=== PATIENT | male | born 1970 ===

== ENCOUNTER 2017-03-25 08:43 | Emergency (ER) | payer OTHER ==
[2017-03-25 08:44] VITALS: BMI 38.7
[2017-03-25 09:22] VITALS: BP 132/87; PULSE 96; RESP 16; TEMP 98.5; O2SAT 96
--- NOTE | 2017-03-25 10:26 | ED PDOC ---
HPI: Head Injury Time Seen by Provider: 03/25/17 09:22 Chief Complaint (Nursing): Abnormal Skin Integrity Chief Complaint (Provider): hit in the head with a pipe History Per: Patient History/Exam Limitations: no limitations Injury Occurred (Timing): Today @ (at 8:30 AM) Patient States: Struck With Object Pain Scale Rating Of: 0 Loss Of Consciousness: No Front/Back Head: 1 - 2 cm laceration Additional History Per: Patient Additional Complaint(s): 46 year old male presents after being struck in the head with a pipe while he was at work. Patient was struck in the head due to accident. States he did not lose consciousness, no dizziness, no changes in vision or gait disturbance. He is currently only taking an antibiotic for infection of his LLE that he sustained after an old window fell onto it. He had aristides placed and subsequently developed infection. Unsure of which antibiotic, however he follows up with with PMD regularly. PMD: Dr. Hicks Past Medical History Vital Signs: Last Vital Signs Temp 98.5 F 03/25/17 09:21 Pulse 96 H 03/25/17 09:21 Resp 16 03/25/17 09:21 BP 132/87 03/25/17 09:21 Pulse Ox 96 03/25/17 09:21 - Medical History PMH: Denies: Chronic Kidney Disease - Surgical History Surgical History: Tonsillectomy - Family History Family History: States: Unknown Family Hx - Home Medications Home Medications: Ambulatory Orders Medication Instructions Recorded Unobtainable 03/25/17 - Allergies Allergies/Adverse Reactions: Allergies Allergy/AdvReac Type Severity Reaction Status Date / Time No Known Allergies Allergy Verified 09/09/16 08:16 Physical Exam - Physical Exam Appears: Positive for: Well, No Acute Distress Head Exam: Positive for: NORMOCEPHALIC (left zygomatic process tender to palpation, tenderness above left eyebrow, no ecchymosis or edema.) Skin: Positive for: Normal Color (2 cm laceration above left eyebrow, no edema/ ecchymosis.), Warm, Dry Eye Exam: Positive for: Normal appearance, EOMI, PERRL. Negative for: Nystagmus , Periorbital swelling Neck: Positive for: Normal, Painless ROM Cardiovascular/Chest: Positive for: Regular Rate, Rhythm. Negative for: Edema, Murmur Respiratory: Positive for: Normal Breath Sounds (normal breathing pattern) Gastrointestinal/Abdominal: Positive for: Normal Exam, Bowel Sounds, Soft. Negative for: Tenderness Back: Positive for: Normal Inspection Rectal: Negative for: Deferred Extremity: Positive for: Normal ROM, Other (approx 4 cm healing laceration, skin closed, no signs of infection) Neurologic/Psych: Positive for: Alert, rehabilitation worker II-XII, Oriented, Mood/Affect ( appropriate). Negative for: Motor/Sensory Deficits - ECG O2 Sat by Pulse Oximetry: 96 - Progress ED Course And Treament: Patient denies pain, headache dizziness. AAOX3 reevaluation:Sutures placed. Patient tolerated procedure well. Feels fine. Denies dizziness, headache or pain. Declined pain medication. Patient is stable. Procedures - Laceration/Wound Repair Left Face Wound Length (cm): 2 Wound's Depth, Shape: superficial Wound Explored: no foreign body removed Betadine Prep?: Yes Anesthesia: 1% Lidocaine Wound Repaired With: Sutures Suture Size/Type: 5:0 (prolene, monocryl) Number of Sutures: 7 Wound Complexity: Simple Sterile Dressing Applied?: Yes Disposition - Clinical Impression Clinical Impression: Laceration, Contusion - Patient ED Disposition Is Patient to be Admitted: No - Disposition Disposition: Routine/Home Condition: GOOD Additional Instructions: Patient to follow up with PMD in 2-3 days. Continue taking antibiotics. ER precautions given. Instructions: Laceration (ED) Forms: [facility] ED School/Work Excuse
[2017-03-25] MEDS ORDERED: Lidocaine 1% Inj (20ml) IJ ONE (10:39)
[2017-03-25] MEDS ORDERED: Povidone Iodine Topical 10% Sol TOP ONE (10:41)
[2017-03-25] MEDS ORDERED: Lidocaine 1% Inj (20ml) ONE (10:45)
[2017-03-25] MEDS ORDERED: Povidone Iodine Oint 10% Foilpak UD ONE (10:46)
[2017-03-25] MEDS ORDERED: Povidone Iodine Topical 10% Sol ONE (10:47)
== END 2017-03-25 12:05 | disposition home or self-care (01) ==
LOC: H.ER 08:43
DX: S01.01XA Laceration without foreign body of scalp, initial encounter (principal); W22.8XXA Striking against or struck by other objects, initial encounter; Y99.0 Civilian activity done for income or pay

== ENCOUNTER 2017-03-27 12:29 | Emergency (ER) | payer OTHER ==
[2017-03-27 12:43] VITALS: BMI 39.5
[2017-03-27 12:44] VITALS: BP 130/79; PULSE 88; RESP 20; TEMP 98.7; O2SAT 98
--- NOTE | 2017-03-27 13:01 | ED PDOC ---
HPI: Headache Time Seen by Provider: 03/27/17 12:42 Chief Complaint (Nursing): Eye Problem Chief Complaint (Provider): Headache with left blurred vision History Per: Patient History/Exam Limitations: no limitations Onset/Duration Of Symptoms: Hrs (Since 5:30am) Current Symptoms Are (Timing): Still Present Additional Complaint(s): Montana Rowley is a 46 y/o male with no previous medical history, who presents to the emergency department complaining of headaches associated with left eye blurriness and dizziness, onset today (03/27/2017) at 5:30am. Patient was seen here on 03/25/2017 after sustaining a laceration above his left eyebrow, which was repaired with 7 sutures using 1% Lidocaine. He denies any trauma or problems with the wound in the interim. Patient denies having any head imaging at visit on 03/25/2017. He admits to taking 2 tabs of Tylenol this morning. Denies any associated fever, chills, nausea, vomiting, or changes in speech, memory, or gait disturbance. PMD: Dr. Hicks Past Medical History Reviewed: Historical Data, Nursing Documentation, Vital Signs Vital Signs: Last Vital Signs Temp 98.7 F 03/27/17 12:40 Pulse 88 03/27/17 12:40 Resp 20 03/27/17 12:40 BP 130/79 03/27/17 12:40 Pulse Ox 98 03/27/17 12:40 - Medical History PMH: No Chronic Diseases Denies: Chronic Kidney Disease - Surgical History Surgical History: Tonsillectomy - Family History Family History: States: Unknown Family Hx - Home Medications Home Medications: Ambulatory Orders Medication Instructions Recorded Unobtainable 03/25/17 - Allergies Allergies/Adverse Reactions: Allergies Allergy/AdvReac Type Severity Reaction Status Date / Time No Known Allergies Allergy Verified 03/27/17 12:39 Review of Systems ROS Statement: Except As Marked, All Systems Reviewed And Found Negative Constitutional: Negative for: Fever, Chills Eyes: Positive for: Vision Change (Left eye with increased blurred vision) Gastrointestinal: Negative for: Nausea, Vomiting Neurological: Positive for: Headache, Dizziness. Negative for: Change in Speech , Other (Changes in memory, gait disturbance) Physical Exam - Reviewed Nursing Documentation Reviewed: Yes Vital Signs Reviewed: Yes - Physical Exam Appears: Positive for: Non-toxic, No Acute Distress Head Exam: Positive for: ATRAUMATIC, NORMOCEPHALIC Skin: Positive for: Normal Color (Sutures are in place on forehead, healing well. No wound dehiscence.), Warm, Dry Eye Exam: Positive for: EOMI (Peripheral vision intact ). Negative for: Nystagmus, Periorbital tenderness, Other (hyphemia, conjunctival hemorrhage) ENT: Negative for: Other (No facial swelling or facial asymmetry) Neck: Positive for: Normal, Painless ROM, Supple Cardiovascular/Chest: Positive for: Regular Rate, Rhythm. Negative for: Murmur Respiratory: Positive for: Normal Breath Sounds. Negative for: Accessory Muscle Use, Respiratory Distress Extremity: Positive for: Normal ROM. 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 Difference in strength on right vs. left, but patient states this is baseline.), Cerebellar Tests (Normal) - ECG O2 Sat by Pulse Oximetry: 98 (RA) Pulse Ox Interpretation: Normal Medical Decision Making Medical Decision Making: Time: 12:57 Initial Plan: --Injury sustained three days ago, now patient reporting symptoms that began this morning --Head CT will be ordered due to patient with headaches, dizziness, and sensory deficit noted on left head: CT-negative. Pt most likely with residual numbness due to lidocaine advised to continue massaging the area. Scribe Attestation: Documented by Page Salmon, acting as a scribe for Janette Dalton PA-C. Provider Scribe Attestation: All medical record entries made by the Scribe were at my direction and personally dictated by me. I have reviewed the chart and agree that the record accurately reflects my personal performance of the history, physical exam, medical decision making, and the department course for this patient. I have also personally directed, reviewed, and agree with the discharge instructions and disposition. Disposition - Clinical Impression Clinical Impression: Visit for wound check, Headache - Patient ED Disposition Is Patient to be Admitted: No Counseled Patient/Family Regarding: Need For Followup - Disposition Disposition: Routine/Home Disposition Time: 14:00 Condition: STABLE Instructions: Laceration (ED), Care For Your Stitches (ED)
--- NOTE | 2017-03-27 13:47 | CT ---
PROCEDURE: CT HEAD WITHOUT CONTRAST. HISTORY: blurred vision and OSWALD COMPARISON: None available. TECHNIQUE: Axial computed tomography images were obtained through the head/brain without intravenous contrast. Radiation dose: Total exam DLP = 878.38 mGy-cm. This CT exam was performed using one or more of the following dose reduction techniques: Automated exposure control, adjustment of the mA and/or kV according to patient size, and/or use of iterative reconstruction technique. FINDINGS: HEMORRHAGE: No intracranial hemorrhage. BRAIN: No mass effect or edema. The [place]-white matter differentiation appears intact. Please note that MRI with diffusion imaging is more sensitive in the detection of acute ischemic event. VENTRICLES: No hydrocephalus. CALVARIUM: Unremarkable. PARANASAL SINUSES: Unremarkable as visualized. No significant inflammatory changes. MASTOID AIR CELLS: Unremarkable as visualized. No inflammatory changes. OTHER FINDINGS: None. IMPRESSION: No acute intracranial pathology identified.
== END 2017-03-27 14:18 | disposition home or self-care (01) ==
LOC: H.ER 12:29
DX: R51 Headache (principal); Z48.01 Encounter for change or removal of surgical wound dressing; S01.81XD Laceration without foreign body of other part of head, subsequent encounter; X58.XXXD Exposure to other specified factors, subsequent encounter

== ENCOUNTER 2017-03-31 12:13 | Emergency (ER) | payer OTHER ==
[2017-03-31 12:14] VITALS: BMI 39.5
[2017-03-31 13:03] VITALS: BP 119/79; PULSE 72; RESP 18; TEMP 97.5; O2SAT 100
--- NOTE | 2017-03-31 13:19 | ED PDOC ---
HPI: Wound Care - HPI Time Seen by Provider: 03/31/17 13:05 Chief Complaint (Nursing): Suture/Staple Removal Chief Complaint (Provider): Suture removal - Left forehead placed 03/27/17 History Per: Patient Exam Limitations: no limitations Severity: None Additional Complaint(s): Pt denies pain, denies drainage. No antibiotic. Pt reports apply topical antibiotics at home. No complaints. No headache. Past Medical History Reviewed: Historical Data, Nursing Documentation, Vital Signs Vital Signs: Last Vital Signs Temp 97.5 F L 03/31/17 12:59 Pulse 72 03/31/17 12:59 Resp 18 03/31/17 12:59 BP 119/79 03/31/17 12:59 Pulse Ox 100 03/31/17 12:59 - Medical History PMH: No Chronic Diseases Denies: Chronic Kidney Disease - Surgical History Surgical History: Tonsillectomy - Family History Family History: States: Unknown Family Hx - Living Arrangements Living Arrangements: Alone - Social History Current smoker - smoking cessation education provided: No Alcohol: None Drugs: Denies - Home Medications Home Medications: Ambulatory Orders Medication Instructions Recorded Unobtainable 03/25/17 - Allergies Allergies/Adverse Reactions: Allergies Allergy/AdvReac Type Severity Reaction Status Date / Time No Known Allergies Allergy Verified 03/27/17 12:39 Review of Systems ROS Statement: Except As Marked, All Systems Reviewed And Found Negative Constitutional: Negative for: Fever Skin: Positive for: Other Physical Exam - Reviewed Nursing Documentation Reviewed: Yes Vital Signs Reviewed: Yes - Physical Exam Appears: Positive for: Well, Non-toxic, No Acute Distress Head Exam: Positive for: ATRAUMATIC, NORMAL INSPECTION, NORMOCEPHALIC Skin: Positive for: Warm. Negative for: Normal Color (2.5 cm laceration with 6 sutures intact. No drainage, no surroudning erythema or edema ) Eye Exam: Positive for: EOMI, Normal appearance, PERRL ENT: Positive for: Normal ENT Inspection Neck: Positive for: Normal, Painless ROM Respiratory: Negative for: Accessory Muscle Use, Respiratory Distress Back: Positive for: Normal Inspection Extremity: Positive for: Normal ROM Neurologic/Psych: Positive for: Alert, Oriented - ECG O2 Sat by Pulse Oximetry: 100 Medical Decision Making Medical Decision Making: All sutures easily removed with suture removal kit and #11 blade. Well- tolerated. Bandage with antibiotics ointment applied. Disposition - Clinical Impression Clinical Impression: Removal of suture - Patient ED Disposition Is Patient to be Admitted: No Counseled Patient/Family Regarding: Diagnosis, Need For Followup - Disposition Disposition: Routine/Home Disposition Time: 13:19 Condition: STABLE Instructions: Stitches Removal (ED)
== END 2017-03-31 13:31 | disposition home or self-care (01) ==
LOC: H.ER 12:13
DX: Z48.02 Encounter for removal of sutures (principal)

== ENCOUNTER 2018-05-11 16:11 | Emergency (ER) | payer OTHER ==
[2018-05-11 16:11] VITALS: BMI 39.5
[2018-05-11 16:28] VITALS: BP 117/77; PULSE 79; RESP 14; TEMP 98.3; O2SAT 97
--- NOTE | 2018-05-11 18:50 | CP.PCM.CON ---
History of Present Illness - History of Present Illness History of Present Illness: Podiatry consult note for attending dr. Multani 47 y/o M patient with no PMH seen and evaluated in the ED for pain in his left heel. Patient is AAO X 3 and not in acute distress. Patient states that last Thursday he stepped over piece of wood. Patient state that splinters from this piece stuck into his left heel. Patient states that his daughter managed to get most of it out but he still feels it when he walks. Patient states that he feels pain in his left heel when he walks. Patient denies any recent F/N/V/C or SOB. Patient denies any other pedal complaint at this time. PMH: None PSH: Cyst removal from his neck. Allergies: NKDA Social Hx: Denies smoking, EtOH use or illicit drug use. Review of Systems - Review of Systems Review of Systems: As per HPI Past Patient History - Infectious Disease Hx of Infectious Diseases: None - Past Medical History & Family History Past Medical History?: No - Past Social History Smoking Status: Never Smoked - CARDIAC Hx Cardiac Disorders: No - PULMONARY Hx Respiratory Disorders: No - NEUROLOGICAL Hx Neurological Disorder: No - HEENT Hx HEENT Problems: No - RENAL Hx Chronic Kidney Disease: No - ENDOCRINE/METABOLIC Hx Endocrine Disorders: No - HEMATOLOGICAL/ONCOLOGICAL Hx Blood Disorders: No - INTEGUMENTARY Hx Dermatological Problems: No - MUSCULOSKELETAL/RHEUMATOLOGICAL Hx Musculoskeletal Disorders: No Hx Falls: No - GASTROINTESTINAL Hx Gastrointestinal Disorders: No - GENITOURINARY/GYNECOLOGICAL Hx Genitourinary Disorders: No - PSYCHIATRIC Hx Psychophysiologic Disorder: No Hx Substance Use: No - SURGICAL HISTORY Hx Tonsillectomy: Yes - ANESTHESIA Hx Anesthesia: Yes Hx Anesthesia Reactions: No Hx Malignant Hyperthermia: No Meds Home Medications: Home Medication List Medication Instructions Recorded Confirmed Type Cephalexin [cephalexin] 500 mg PO BID #14 cap 05/11/18 Rx Allergies/Adverse Reactions: Allergies Allergy/AdvReac Type Severity Reaction Status Date / Time No Known Allergies Allergy Verified 05/11/18 16:23 Physical Exam - Constitutional Appears: Well, Non-toxic, No Acute Distress - Head Exam Head Exam: ATRAUMATIC, NORMOCEPHALIC - Extremities Exam Additional comments: Left LE focused exam: Vasc: DP/PT 2/4. Cap refill < 3 sec in all digits. Temp gradient warm to cool. + 1 pitting edema extending up to the mid calf. Neuro: Gross and protective sensations are intact. Derm: No open lesions, No clinical signs of infections. interdigital macerations present in the interdigital spaces 1-4. small hyperpigmented rounded about 0.4 cm in diameter at the left heel. MSK: Muscle power intact 5/5 in all groups. Foot and ankle major joints ROM are WNL. Pain on palpating the hyperpigmented rounded area at the left heel. - Neurological Exam Neurological exam: Alert, Oriented x3 - Psychiatric Exam Psychiatric exam: Normal Affect, Normal Mood Results - Vital Signs Recent Vital Signs: Last Vital Signs Temp 98.3 F 05/11/18 16:24 Pulse 79 05/11/18 16:24 Resp 14 05/11/18 16:24 BP 117/77 05/11/18 16:24 Pulse Ox 97 05/11/18 16:24 Assessment & Plan - Assessment and Plan (Free Text) Assessment: 47 Y/O M patient seen and evaluated in the ED for painful foreign body of the left heel Plan: Patient seen and evaluated inn the ED. Plan discussed with attending dr. Multani. X-ray reviewed and it didn't show any radio opaque foreign material. Charts and vitals reviewed; Afebrile Discussed with the patient the need for doing I & D to extract that piece of wood and to drain and fluid collection. Benefits, risks and possible complications of the procedure explained to the patient. Patient agreed to do the procedure. Informed consent signed by the patient. After numbing the patient left heel using 5 cc of lidocaine 2%. using sterile 15 blade incision and drainage of a small hematoma at the patient left heel and extraction of small piece of wood. incision site irrigated with sterile saline. Wound dressed using Bacitracin, Telfa, 4X4 gauze and kerlix. Patient tolerated the procedure well with no complications. Dispensed a left surgical shoe. Patient instructed to bear weight as tolerated in a surgical shoe. Patient instructed to change the dressing daily with bacitracin and DSD. Rx; Keflex 500 mg tablets TID prescribed by the ED doctor. Patient expressed verbal understanding. Patient to follow up at dr. Multani's office. - Date & Time Date: 05/11/18 Time: 19:09
--- NOTE | 2018-05-11 20:06 | ED PDOC ---
Lower Extremity Pain/Injury Time Seen by Provider: 05/11/18 16:41 Chief Complaint (Nursing): Lower Extremity Problem/Injury Chief Complaint (Provider): left foot pain History Per: Patient History/Exam Limitations: no limitations Onset/Duration Of Symptoms: Days (x1 week) Current Symptoms Are (Timing): Still Present Additional Complaint(s): Montana Rowley is a 47 year old male, with no significant past medical history, who presents to the emergency department after he sustained a splinter to the bottom of left foot x1 week ago. Patient states he tried to remove it but obtained part of the foreign body. However, he was unable to take out the remainder. Patient thought it would improve on its own but pain has only worsened to the affected site. He denies any other medical complaints. PMD: None provided. Past Medical History Reviewed: Historical Data, Nursing Documentation, Vital Signs Vital Signs: Last Vital Signs Temp 98.3 F 05/11/18 16:24 Pulse 79 05/11/18 16:24 Resp 14 05/11/18 16:24 BP 117/77 05/11/18 16:24 Pulse Ox 97 05/11/18 16:24 - Medical History PMH: No Chronic Diseases Denies: Chronic Kidney Disease - Surgical History Surgical History: Tonsillectomy - Family History Family History: States: Unknown Family Hx - Home Medications Home Medications: Ambulatory Orders Medication Instructions Recorded Cephalexin [cephalexin] 500 mg PO BID #14 cap 05/11/18 - Allergies Allergies/Adverse Reactions: Allergies Allergy/AdvReac Type Severity Reaction Status Date / Time No Known Allergies Allergy Verified 05/11/18 16:23 Review of Systems ROS Statement: Except As Marked, All Systems Reviewed And Found Negative Musculoskeletal: Positive for: Foot Pain (left) Physical Exam - Reviewed Nursing Documentation Reviewed: Yes Vital Signs Reviewed: Yes - Physical Exam Appears: Positive for: No Acute Distress Head Exam: Positive for: ATRAUMATIC, NORMAL INSPECTION, NORMOCEPHALIC Skin: Positive for: Normal Color, Warm, Dry Eye Exam: Positive for: Normal appearance Neck: Positive for: Painless ROM Respiratory: Negative for: Respiratory Distress Extremity: Positive for: Normal ROM (lower extremities), Tenderness (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 Negative for: Deformity Neurologic/Psych: Positive for: Alert, Oriented. Negative for: Motor/Sensory Deficits - ECG O2 Sat by Pulse Oximetry: 97 (RA) Pulse Ox Interpretation: Normal Medical Decision Making Medical Decision Making: Time: 16:41 Initial Impression: Left foot foreign object Initial Plan: --Foot left 3 views routine [RAD] --Reevaluation XR: NAD, as read by SAQIB Pt underwent podiatry eval, see notes Scribe Attestation: Documented by Duane Bullock, acting as a scribe for Amberly Thomson PA-C Provider Scribe Attestation: All medical record entries made by the Scribe were at my direction and personally dictated by me. I have reviewed the chart and agree that the record accurately reflects my personal performance of the history, physical exam, medical decision making, and the department course for this patient. I have also personally directed, reviewed, and agree with the discharge instructions and disposition. Disposition - Clinical Impression Clinical Impression: Foreign body (FB) in soft tissue - Patient ED Disposition Is Patient to be Admitted: No - Disposition Referrals: Luis Armando Multani MD [Staff Provider] - Disposition: Routine/Home Disposition Time: 20:43 Condition: STABLE Prescriptions: Cephalexin [cephalexin] 500 mg PO BID #14 cap Instructions: Foreign Body in Skin Forms: [employer] (Portuguese), [facility] ED School/Work Excuse
[2018-05-11] MEDS ORDERED: LIDOCAINE 2% 10ML 20 MG/ML VIAL IJ STA (20:10)
[2018-05-11] MEDS ORDERED: Povidone Iodine Oint 10% Foilpak UD ONE (20:14)
[2018-05-11] MEDS ORDERED: Lidocaine PF 2% (5 ml) Inj (For Cardiac Arrhy) ONE (20:17)
--- NOTE | 2018-05-12 09:18 | RAD ---
Date of service: 05/11/2018 PROCEDURE: Left Foot Radiographs. HISTORY: r/o FB COMPARISON: None. FINDINGS: BONES: No fracture. Inferior calcaneal spur . Parsons's tendon insetional enesthesophyte. JOINTS: Normal. SOFT TISSUES: Normal. OTHER FINDINGS: None. IMPRESSION: No fracture. Inferior calcaneal spur . Kari's tendon insetional enesthesophyte.
== END 2018-05-11 20:42 | disposition home or self-care (01) ==
LOC: H.ER 16:11
DX: M79.5 Residual foreign body in soft tissue (principal); W22.09XA Striking against other stationary object, initial encounter

== ENCOUNTER 2018-10-09 09:02 | Emergency (ER) | payer OTHER ==
[2018-10-09 09:02] VITALS: BMI 39.5
--- NOTE | 2018-10-09 10:15 | ED PDOC ---
Lower Extremity Pain/Injury Time Seen by Provider: 10/09/18 09:17 Chief Complaint (Nursing): Lower Extremity Problem/Injury Chief Complaint (Provider): Lower Extremity Problem/Injury History Per: Patient History/Exam Limitations: no limitations Onset/Duration Of Symptoms: Days (a week and a half) Current Symptoms Are (Timing): Still Present Additional Complaint(s): Patient is a 47 y/o male with no significant PMHx who presents to the ED for evaluation of left knee pain for the past week and a half. Patient states he works for the [employer] and is constantly bending. Patient denies any recent falls or trauma. Of note, patient has been taking Tylenol without relief. PCP: None Provided Past Medical History Reviewed: Historical Data, Nursing Documentation, Vital Signs Vital Signs: Last Vital Signs Temp 97.8 F 10/09/18 09:08 Pulse 84 10/09/18 09:08 Resp 18 10/09/18 09:08 BP 144/85 10/09/18 09:08 Pulse Ox 98 10/09/18 09:17 - Medical History PMH: No Chronic Diseases Denies: Chronic Kidney Disease - Surgical History Surgical History: Tonsillectomy - Family History Family History: States: Unknown Family Hx - Home Medications Home Medications: Ambulatory Orders Medication Instructions Recorded Cephalexin [cephalexin] 500 mg PO BID #14 cap 05/11/18 Naproxen [Naprosyn] 500 mg PO BID PRN #15 tablet 10/09/18 - Allergies Allergies/Adverse Reactions: Allergies Allergy/AdvReac Type Severity Reaction Status Date / Time No Known Allergies Allergy Verified 10/09/18 09:16 Review of Systems ROS Statement: Except As Marked, All Systems Reviewed And Found Negative Musculoskeletal: Positive for: Leg Pain (left knee) Physical Exam - Reviewed Nursing Documentation Reviewed: Yes Vital Signs Reviewed: Yes - Physical Exam Appears: Positive for: Non-toxic, No Acute Distress Head Exam: Positive for: ATRAUMATIC, NORMAL INSPECTION, NORMOCEPHALIC Skin: Positive for: Normal Color, Warm, Dry Eye Exam: Positive for: EOMI, Normal appearance, PERRL ENT: Positive for: Normal ENT Inspection Neck: Positive for: Normal, Painless ROM, Supple Cardiovascular/Chest: Positive for: Regular Rate, Rhythm. Negative for: Murmur Respiratory: Positive for: Normal Breath Sounds. Negative for: Respiratory Distress Gastrointestinal/Abdominal: Positive for: Normal Exam, Soft. Negative for: Tenderness Back: Positive for: Normal Inspection. Negative for: L CVA Tenderness, R CVA Tenderness, Vertebral Tenderness Extremity: Positive for: Normal ROM, Tenderness (left medial knee), Other (neurovascularly intact). Negative for: Pedal Edema, Deformity Neurologic/Psych: Positive for: Alert, Oriented. Negative for: Motor/Sensory Deficits - ECG O2 Sat by Pulse Oximetry: 98 (RA) Pulse Ox Interpretation: Normal Medical Decision Making Medical Decision Making: Time: 952 Impression: Atraumatic Knee Pain Plan: Knee 3 Views LT [Rad] Toradol 30 mg IM Time: 1048 FINDINGS: Rotated lateral view. BONES: No acute displaced fracture. Degenerative changes including tenting of the intercondylar notch. JOINTS: No dislocation. JOINT EFFUSION: Small suprapatellar joint effusion. OTHER FINDINGS: None. IMPRESSION: Degenerative changes. Small suprapatellar joint effusion. No acute displaced fracture or dislocation identified. If symptoms persist, or if there is continued clinical concern, x-ray follow-up in 7-10 days should be considered. Jose Angel bandage placed, pt declined crutches. Scribe Attestation: Documented by Stepan Avina, acting as a scribe for Chrissie Colindres MD. Provider Scribe Attestation: All medical record entries made by the Scribe were at my direction and personally dictated by me. I have reviewed the chart and agree that the record accurately reflects my personal performance of the history, physical exam, me dical decision making, and the department course for this patient. I have also personally directed, reviewed, and agree with the discharge instructions and disposition. Disposition - Clinical Impression Clinical Impression: Left medial knee pain - Disposition Referrals: Aaron Quezada III, MD [Staff Provider] - Disposition: Routine/Home Disposition Time: 11:47 Condition: STABLE Prescriptions: Naproxen [Naprosyn] 500 mg PO BID PRN #15 tablet PRN Reason: Pain, Moderate (4-7) Instructions: Knee Pain Forms: [facility] (Kinyarwanda)
--- NOTE | 2018-10-09 10:51 | RAD ---
PROCEDURE: Left Knee Radiographs. HISTORY: Pain COMPARISON: None available. FINDINGS: Rotated lateral view. BONES: No acute displaced fracture. Degenerative changes including tenting of the intercondylar notch. JOINTS: No dislocation. JOINT EFFUSION: Small suprapatellar joint effusion. OTHER FINDINGS: None. IMPRESSION: Degenerative changes. Small suprapatellar joint effusion. No acute displaced fracture or dislocation identified. If symptoms persist, or if there is continued clinical concern, x-ray follow-up in 7-10 days should be considered.
[2018-10-09 12:06] VITALS: BP 118/67; PULSE 75; RESP 16; TEMP 97.9
[2018-10-10 17:30] VITALS: O2SAT 98
== END 2018-10-09 12:04 | disposition home or self-care (01) ==
LOC: H.ER 09:02
DX: M25.562 Pain in left knee (principal)
CPT/HCPCS: 73562; 96372; 99285; J1885